=== PATIENT | male | born 1945 | race Caucasian/White ===

== ENCOUNTER 2021-07-24 10:56 | Outpatient (REF) | payer SELFPAY | END 2021-07-24 10:57 | disposition home or self-care (01) | LOC: HO.HAP 10:56 | PROVIDERS: Visit Provider Student in an Organized Health Care Education/Training Program | DX: Z13.89 Encounter for screening for other disorder (principal) ==

== ENCOUNTER 2021-07-31 13:31 | Outpatient (REF) | payer SELFPAY | END 2021-07-31 13:32 | disposition home or self-care (01) | LOC: HO.HAP 13:31 | PROVIDERS: Visit Provider Student in an Organized Health Care Education/Training Program | DX: Z13.89 Encounter for screening for other disorder (principal) ==

== ENCOUNTER 2021-08-01 13:51 | Outpatient (REF) | payer SELFPAY | END 2021-08-01 13:52 | disposition home or self-care (01) | LOC: HO.HAP 13:51 | PROVIDERS: Visit Provider Student in an Organized Health Care Education/Training Program | DX: Z13.89 Encounter for screening for other disorder (principal) ==

== ENCOUNTER 2022-09-29 09:20 | Outpatient (REF) | payer OTHER, SELFPAY ==
--- NOTE | 2022-09-29 12:36 | MHC.AU.MED ---
Medical Clearance for Hearing Instrumentation Date: 09/29/22 Patient Name: Odell Gallegos Date of : 1945 Primary Care Provider: Trina Browning MD We have seen your patient on 09/29/22 and have determined that they are a candidate for amplification (See accompanying report). Specifically, they would benefit from: Hearing aid use in both ears There is a statute that addresses Medical Evaluation Requirements prior to fitting a patient with a hearing aid. According to [place] statute 265 CMR:6.03(1), (a) General. Except as provided in 265 CMR 6.03(1)(b), a labor arbitrator hearing office shall not sell a hearing aid unless the prospective user has presented to the labor arbitrator hearing office a written statement signed by a licensed physician that states that the patient's hearing loss has been medically evaluated and the patient may be considered a candidate for a hearing aid. The medical evaluation must have taken place within the preceding six months. Please note: Due to the [place] Statute referenced above, we cannot accept a signature other than that of a licensed physician. MACHINIST MECHANIC and PA signatures cannot be accepted. I am in agreement with the above recommendation. There is no medical contraindication for hearing instrumentation. Physician Signature Date Physician Name (Printed)
--- NOTE | 2022-09-29 12:42 | MHC.AU.HA3 ---
Hearing Instrument Follow-Up- Binaural Date of Visit: 09/29/22 Right Ear: Make, Model, Color, Serial Number: Gonzales Arauz [id number]-SP SN: [id number] Color: Frederice Ota Repair Warranty: 10/03/2021 Battery Size: 13 Earmold/Dome/CShell/SlimTip:Microsonic Skeleton Dispensed By: [facility] Date of Fittin07/12/2018 Left Ear: Mario, Model, Color, Serial Number: Gonzales [id number]-SP SN: [id number] Color: Romeoagne Ota Repair Warranty: 10/03/2021 Battery Size: 13 Earmold/Dome/CShell/SlimTip: Microsonic Skeleton Dispensed By: [facility] Date of Fittin07/12/2018 Follow-Up Summary: Odell reported that the right tubing is pulling out of the mold and both tubes have moisture build up. Both tubes were extremely hard with moisture in both the tubes and tone hooks. Cleaned the hearing aids and ear molds. Vacuumed microphones. Replaced tubing and tone hooks. Did not have adult tone hooks in stock, used pediatric hooks; however, Odell reported comfortable fit on pinna. Discussed possibility of new hearing aids due to age of current pair and upgraded bluetooth capabilities and noise management systems - see Hearing Aid Evaluation report. Recommendations: Hearing instrument maintenance in 6 months, or sooner if needed. Please contact our clinic with any questions or concerns. Diagnosis Code(s): Primary Diagnosis: H90.3 Bilateral Sensorineural Hearing Loss Signature: Provider: Herbert Claudio, [facility]
--- NOTE | 2022-09-30 14:19 | MHC.AU.HA1 ---
Hearing Aid Evaluation Date of Visit: 09/29/22 Historical Information: Description of Hearing: Mild sloping to profound sensorineural hearing loss, bilaterally. Current personal amplification information: Phonak Bolero B90-SP hearing aids purchased in June 2018 Summary: Odell reported he is hoping to upgrade his hearing aid technology due to the age of his current pair. He continues to have an active social life, going out to restaurants, attending family and social gatherings, as well as spending time outdoors including maintaining his yard and other mechanical hobbies. Newer hearing aids will provide upgraded noise management systems to better support Odell in those adverse listening environments and will also allow direct connection to his cell phone so he is better able to hear and understand phone calls. Hearing Aid Prescription: Based on the individual?s shared listening needs, communication environments, dexterity, desire for connectivity, and personal preferences, the following prescription for amplification has been made: Right ear: Make, Model, Color: Phonak Rosa Elena P90-UP Color: Champagne Battery Size: 675 Type of Earmold/Dome/CShell/SlimTip: Microsonic M45 Skeleton Left ear: Left ear prescription to be same as Right Hearing Aid above: Make, Model, Color: Phonak Rosa Elena P90-UP Color: Champagne Battery Size: 675 Type of Earmold/Dome/CShell/SlimTip: Microsonic M45 Skeleton Plan of Care: Patient wishes to purchase hearing aids as prescribed Action Taken/Action Needed: Earmold Impressions Taken. Prior authorization to be requested. Medical Clearance to be requested from PCP/ENT Hearing Instrument Fitting to be scheduled when materials arrive Comments: Prior approval/quote for hearing aids will be requested through Odell's worker's compensation claim (see note from [employer], agent: Madelin Brown) once medical clearance has been obtained from PCP. Primary Diagnosis: H90.3 Bilateral Sensorineural Hearing Loss Signature: Provider: Herbert Claudio, [facility]
== END 2022-09-29 09:21 | disposition home or self-care (01) ==
LOC: HO.SH 09:20
PROVIDERS: Visit Provider Internal Medicine
DX: H90.3 Sensorineural hearing loss, bilateral (principal)
CPT/HCPCS: 92557; 92591; 92593

== ENCOUNTER 2022-11-09 10:21 | Outpatient (REF) | payer OTHER, SELFPAY ==
--- NOTE | 2022-11-09 11:18 | MHC.AU.HA2 ---
Hearing Instrument Fitting- Adult- Binaural Date of Visit: 11/09/22 Hearing Instruments Dispensed: Right Ear: Make, Model, Color, Serial Number: Phonak Rosa Elena P90-UP SN: [id number] Color: Champagne Nursing Home Assistant Repair Warranty: 01/02/2026 Nursing Home Assistant Loss and Damage Warranty: 01/02/2026 [facility] Service Plan: 11/09/2025 Battery Size: 675 Earmold/Dome/CShell/SlimTip: Microsonic M45 Skeleton with small vent Left Ear: Make, Model, Color, Serial Number: Phonak Rosa Elena P90-UP SN: [id number] Color: Champagne Nursing Home Assistant Repair Warranty: 01/02/2026 Nursing Home Assistant Loss and Damage Warranty: 01/02/2026 [facility] Service Plan: 11/09/2025 Battery Size: 675 Earmold/Dome/CShell/SlimTip: Microsonic M45 Skeleton with small vent Summary of Fitting: Performed feedback manager talent management and real ear measurements. Slightly loud (although not uncomfortable) at real ear settings; however, Odell reported clarity is greatly improved compared to his old hearing aids. Reviewed care and use including cleaning, changing battery, and volume control use. Earmolds comfortable and no feedback in office. Paired to cellphone and confirmed successful connection with phone call in office. Explained Phonak ON joanne - Odell will download joanne at home if he decides to try it. Recommendations: A hearing instrument follow-up was scheduled. As a long-time hearing aid user, Odell may cancel the follow up appointment if all is well (i.e., no questions, concerns, or problems) with his new hearing aids. Diagnosis Code(s): Primary Diagnosis: H90.3 Bilateral Sensorineural Hearing Loss Signature: Provider: Herbert Claudio, [facility]
== END 2022-11-09 10:22 | disposition home or self-care (01) ==
LOC: HO.HAP 10:21
PROVIDERS: Visit Provider Student in an Organized Health Care Education/Training Program
DX: Z46.1 Encounter for fitting and adjustment of hearing aid (principal); H90.3 Sensorineural hearing loss, bilateral
CPT/HCPCS: V5261; V5264; V5299

== ENCOUNTER 2022-11-30 10:22 | Outpatient (REF) | payer SELFPAY ==
--- NOTE | 2022-11-30 12:15 | MHC.AU.HA3 ---
Hearing Instrument Follow-Up- Binaural Date of Visit: 11/30/22 Right Ear: Make, Model, Color, Serial Number: Gonzales Cuba P90-UP SN: [id number] Color: Champagne Ore Mixer Repair Warranty: 01/02/2026 Ore Mixer Loss and Damage Warranty: 01/02/2026 [facility] Service Plan: 11/09/2025 Battery Size: 675 Earmold/Dome/CShell/SlimTip:Microsonic M45 Skeleton with small vent Dispensed By: [facility] Date of Fittin10/30/2022 Left Ear: Make, Model, Color, Serial Number: Gonzales Cuba P90-UP SN: [id number] Color: Champagne Ore Mixer Repair Warranty: 01/02/2026 Ore Mixer Loss and Damage Warranty: 01/02/2026 [facility] Service Plan: 11/09/2025 Battery Size: 675 Earmold/Dome/CShell/SlimTip: Microsonic M45 Skeleton with small vent Dispensed By: [facility] Date of Fittin11/09/2022 Follow-Up Summary: Odell reported that overall the hearing aids have been a great improvement compared to his old hearing aids. He notices significant benefit in terms of overall sound quality including clarity of speech. He reported some difficulty in background noise at a recent birthday libertarian. Increased noise management settings in speech in noise programs. Data logging ~14 hours/day. Odell's only concern was the comfort of the new ear molds. He reported that the canals feel too deep in his ears causing itching, discomfort, and moisture buildup. Discussed benefits of longer canals; however, Odell would like to try new molds with shorter canals. Will reorder from [employer] under warranty. Recommendations: Odell will be contacted when the new ear molds arrive to schedule an appointment to have them fit. Diagnosis Code(s): Primary Diagnosis: H90.3 Bilateral Sensorineural Hearing Loss Signature: Provider: Herbert Claudio, [facility]
== END 2022-11-30 10:23 | disposition home or self-care (01) ==
LOC: HO.HAP 10:22
PROVIDERS: Visit Provider Student in an Organized Health Care Education/Training Program
DX: Z13.89 Encounter for screening for other disorder (principal)

== ENCOUNTER 2022-12-28 13:47 | Outpatient (REF) | payer SELFPAY ==
--- NOTE | 2022-12-28 14:15 | MHC.AU.HA3 ---
Hearing Instrument Follow-Up- Binaural Date of Visit: 12/28/22 Right Ear: Mario, Model, Color, Serial Number: Gonzales Cuba P90-UP SN: [id number] Color: Champagne Tank Stave Assembler Repair Warranty: 01/02/2026 Tank Stave Assembler Loss and Damage Warranty: 01/02/2026 [facility] Service Plan: 11/09/2025 Battery Size: 675 Earmold/Dome/CShell/SlimTip:Microsonic M45 Skeleton with small vent Dispensed By: [facility] Date of Fittin10/30/2022 Left Ear: Mario, Model, Color, Serial Number: Gonzales Cuba P90-UP SN: [id number] Color: Romeoagne Tank Stave Assembler Repair Warranty: 01/02/2026 Tank Stave Assembler Loss and Damage Warranty: 01/02/2026 [facility] Service Plan: 11/09/2025 Battery Size: 675 Earmold/Dome/CShell/SlimTip: Microsonic M45 Skeleton with small vent Dispensed By: [facility] Date of Fittin11/09/2022 Follow-Up Summary: Odell returned to fit his new ear molds with shorter canals. He noticed an immediate improvement in comfort as well as ease of insertion. No feedback noted in office. Odell also reported that a few days ago, his right hearing aid had stopped working. He noticed the damper in the tone hook. Unaware of its purpose, he removed it and the hearing aid started working again. Recently, the left hearing aid stopped working. Upon inspection in office, the damper was blocked with moisture. Removed the damper and the hearing aid started working again. Odell does not notice a significant difference in sound quality with or without the dampers. No dampers in either tone hook now and Odell reported good sound quality with comfortable ear molds. Recommendations: Hearing instrument maintenance in 6 months, or sooner if needed. Please contact our clinic with any questions or concerns. Recommendations (Other): Advised to call as soon as possible if issues arise with new ear molds. Diagnosis Code(s): Primary Diagnosis: H90.3 Bilateral Sensorineural Hearing Loss Signature: Provider: Herbert Claudio, [facility]
== END 2022-12-28 13:48 | disposition home or self-care (01) ==
LOC: HO.HAP 13:47
PROVIDERS: Visit Provider Student in an Organized Health Care Education/Training Program
DX: Z13.89 Encounter for screening for other disorder (principal)

== ENCOUNTER 2023-05-19 08:46 | Outpatient (REF) | payer SELFPAY ==
--- NOTE | 2023-05-19 10:40 | MHC.AU.HA3 ---
Hearing Instrument Follow-Up- Binaural Date of Visit: 05/19/23 Right Ear: Mario, Model, Color, Serial Number: Gnozales Cuba P90-UP SN: [id number] Color: Champagne Bilingual Medical Assistant Repair Warranty: 01/02/2026 Bilingual Medical Assistant Loss and Damage Warranty: 01/02/2026 [facility] Service Plan: 11/09/2025 Battery Size: 675 Earmold/Dome/CShell/SlimTip:Microsonic M45 Skeleton with small vent Dispensed By: [facility] Date of Fittin10/30/2022 Left Ear: Mario, Model, Color, Serial Number: Gonzales Cuba P90-UP SN: [id number] Color: Romeoagne Bilingual Medical Assistant Repair Warranty: 01/02/2026 Bilingual Medical Assistant Loss and Damage Warranty: 01/02/2026 [facility] Service Plan: 11/09/2025 Battery Size: 675 Earmold/Dome/CShell/SlimTip: Microsonic M45 Skeleton with small vent Dispensed By: [facility] Date of Fittin11/09/2022 Follow-Up Summary: Odell returned for routine hearing aid maintenance. He reported that within the past month his hearing aids sounded weaker than usual and the tone hooks continually spin. Tubing was hardened and visible moisture was built up in tubes and tone hooks. Cleaned hearing aids and earmolds. Ran through dehumidifier. Replaced tubes and tone hooks. Increased overall volume to 110% gain level at Odell's request and increased noise management settings. Odell also reported the right ear mold tends to be more difficult to insert and he needs to pull the hearing aid more forward to place it on top of his pinna. However, once ear mold is inserted, no discomfort noted. Tube length looks appropriate. Odell reported it may be related to his shoulder issues and reduced range of motion from his right arm. Lastly, reviewed bluetooth as Odell often needs to use speaker phone so his can hearing the conversation as well. Tuan'ed how to turn bluetooth off, choose speaker option during a phone call, and/or disconnect the hearing aids. Recommendations: Hearing instrument follow-up or maintenance as needed. Diagnosis Code(s): Primary Diagnosis: H90.3 Bilateral Sensorineural Hearing Loss Signature: Provider: Herbert Claudio, [facility]
== END 2023-05-19 08:47 | disposition home or self-care (01) ==
LOC: HO.HAP 08:46
PROVIDERS: Visit Provider Student in an Organized Health Care Education/Training Program
DX: Z13.89 Encounter for screening for other disorder (principal)

== ENCOUNTER 2024-01-12 13:46 | Outpatient (REF) | payer SELFPAY | END 2024-01-12 13:47 | disposition home or self-care (01) | LOC: HO.HAP 13:46 | PROVIDERS: Visit Provider Student in an Organized Health Care Education/Training Program | DX: Z13.89 Encounter for screening for other disorder (principal) ==

== ENCOUNTER 2024-06-05 08:08 | Outpatient (REF) | payer SELFPAY | END 2024-06-05 08:09 | disposition home or self-care (01) | LOC: HO.HAP 08:08 | PROVIDERS: Visit Provider Student in an Organized Health Care Education/Training Program | DX: Z13.89 Encounter for screening for other disorder (principal) ==

== ENCOUNTER 2024-11-09 09:08 | Outpatient (REF) | payer SELFPAY ==
--- NOTE | 2024-11-09 09:38 | MHC.AU.HA3 ---
Hearing Instrument Follow-Up- Binaural Date of Visit: 11/09/24 Right Ear: Make, Model, Color, Serial Number: Gonzales Mccarthyida P90-UP SN: [id number] Color: Champagne Park Guard Repair Warranty: 01/02/2026 Park Guard Loss and Damage Warranty: 01/02/2026 [facility] Service Plan: 11/09/2025 Battery Size: 675 Earmold/Dome/CShell/SlimTip:Microsonic M45 Skeleton with small vent Dispensed By: [facility] Date of Fittin10/30/2022 Left Ear: Make, Model, Color, Serial Number: Gonzales Mccarthyida P90-UP SN: [id number] Color: Champagne Park Guard Repair Warranty: 01/02/2026 Park [employer] Loss and Damage Warranty: 01/02/2026 [facility] Service Plan: 11/09/2025 Battery Size: 675 Earmold/Dome/CShell/SlimTip: Microsonic M45 Skeleton with small vent Dispensed By: [facility] Date of Fittin11/09/2022 Follow-Up Summary: Odell is here in need of tubing change. Notes tone hook is spinning on right aid as well. Cleaned aids and ran through dehumidifier. Cleaned earmolds, replaced tubes and tone hooks. Listening check positive. Recommendations: Recommendations: Hearing instrument maintenance in 6 months, or sooner if needed. Diagnosis Code(s): Primary Diagnosis: H90.3 Bilateral Sensorineural Hearing Loss Signature: Provider: Herbert Fink, [facility]
== END 2024-11-09 09:09 | disposition home or self-care (01) ==
LOC: HO.HAP 09:08
PROVIDERS: Visit Provider Student in an Organized Health Care Education/Training Program
DX: Z13.89 Encounter for screening for other disorder (principal)

== ENCOUNTER 2025-02-16 10:25 | Outpatient (REF) | payer SELFPAY | END 2025-02-16 10:26 | disposition home or self-care (01) | LOC: HO.HAP 10:25 | PROVIDERS: Visit Provider Student in an Organized Health Care Education/Training Program | DX: Z13.89 Encounter for screening for other disorder (principal) ==

== ENCOUNTER 2025-05-01 13:23 | Outpatient (REF) | payer SELFPAY | END 2025-05-01 13:24 | disposition home or self-care (01) | LOC: HO.HAP 13:23 | PROVIDERS: Visit Provider Student in an Organized Health Care Education/Training Program | DX: Z13.89 Encounter for screening for other disorder (principal) ==